=== PATIENT | female | born 1985 | race African-American/Black ===

== ENCOUNTER 2019-03-27 12:30 | Emergency (ER) | payer SELFPAY ==
[~2019-03-27] VITALS: Ht 170.2 cm; Wt 68.0 kg
[2019-03-27] MEDS ORDERED: NKM (12:52)
[2019-03-27 13:28] VITALS: BP 118/66
--- NOTE | 2019-03-27 13:30 | NUR ---
ED Nurse Note:pt. fell yeasterday while rollerblading and hurt right arm, tale bone and head, skin is intact
[2019-03-27] MEDS ORDERED: HYDROcodone/Acetamin 5/325 tab ORAL ONE (13:45)
--- NOTE | 2019-03-27 14:18 | Emergency Room Report ---
History of Present Illness General Chief Complaint: Multiple Trauma/Fall Source: Patient Present Illness HPI 33-year-old female presents to the emergency department complaining of 10 out of 10 severity pain, swelling and tenderness to the right wrist and right forearm since yesterday status post mechanical slip and fall while rollerblading. Patient reports she fell and then to larger size persons fell on top of her. She denies hitting her head she denies loss of consciousness, she denies having any midline neck or back pain. She denies paresthesias or loss of gross motor movements distal to the affected extremity. Patient reports that she has been using warm heat pads and elevation with normal relief of her symptoms. No previous injury to this extremity. Allergies: Coded Allergies: No Known Allergies (Unverified , 03/27/19) Patient History Past Medical History: see triage record Past Surgical History: none Pertinent Family History: none Last Menstrual Period: 03/20/2019 Now: No Immunizations: UTD Reviewed Nursing Documentation: PMH: Agreed; PSxH: Agreed Nursing Documentation-PMH Past Medical History: No Stated History Review of Systems All Other Systems: negative except mentioned in HPI Physical Exam Vital Signs Date Time Temp Pulse Resp B/P (MAP) Pulse Ox O2 Delivery O2 Flow Rate FiO2 03/27/19 12:49 98.4 86 16 118/66 (83) 96 Room Air Sp02 EP Interpretation: reviewed, normal General Appearance: no apparent distress, alert, GCS 15, non-toxic Head: normocephalic, atraumatic Eyes: bilateral eye normal inspection, bilateral eye PERRL ENT: hearing grossly normal, normal voice Neck: full range of motion Respiratory: lungs clear, normal breath sounds, speaking full sentences Cardiovascular #1: regular rate, rhythm, normal capillary refill Cardiovascular #2: 2+ radial (R), 2+ radial (L) Musculoskeletal: back normal, gait/station normal, normal range of motion, tender - TTP to the right wrist and distal forearm, deformity noted, mild bruising medially in the distal forearm. no snuff box ttp, no pain with axial loading of the thumb. Pain with ROM testing. Neurologic: alert, oriented x3, responsive, motor strength/tone normal, sensory intact, normal gait, speech normal, grossly normal Psychiatric: judgement/insight normal Skin: Ecchymosis/Bruising - distal right wrist/ forearm. Lymphatic: no adenopathy Medical Decision Making ALISHA Attestation Dr. Carbajal is my supervising Physician whom patient management has been discussed with. Diagnostic Impression: Primary Impression: Right wrist sprain Qualified Codes: S63.501A - Unspecified sprain of right wrist, initial encounter ER Course 33-year-old female presents to the emergency department complaining of 10 out of 10 severity pain, swelling and tenderness to the right wrist and right forearm since yesterday status post mechanical slip and fall while rollerblading. Patient reports she fell and then to larger size persons fell on top of her. She denies hitting her head she denies loss of consciousness, she denies having any midline neck or back pain. She denies paresthesias or loss of gross motor movements distal to the affected extremity. Patient reports that she has been using warm heat pads and elevation with normal relief of her symptoms. No previous injury to this extremity. Ddx considered but are not limited to Fracture, dislocation, contusion, Sprain/ Strain/Spasm, Vital signs: are WNL, pt. is afebrile H&PE are most consistent with musculoskeletal injury will perform imaging to r/ o fractures/dislocations.-- No snuff box ttp. ORDERS: - X-ray Right wrist 3 views, Right forearm 2 views - negative for fx, Dislocation, or significant soft tissue injury, per preliminary read in ED, and signed by ALISHA Lind, my supervising physician has reviewed, and agrees with my interpretation. ED INTERVENTIONS: - [place] PO 5mg Right thumb spika Splint applied by research tech. Pt. remains neurovascularly intact. - Right arm Sling applied by research tech. Pt. remains neurovascularly intact. DISCHARGE: At this time pt. is stable for d/c to home. Will provide printed patient care instructions, and any necessary prescriptions. Care plan and follow up instructions have been discussed with the patient prior to discharge. Other X-Ray Diagnostic Results Other X-Ray Diagnostic Results #1: X-Ray ordered: right wrist # of Views/Limited Vs Complete: 3 View Indication: Pain EP Interpretation: Yes ALISHA Xray: Interpretation reviewed, by supervising MD, and agrees with findings. Interpretation: no dislocation, no soft tissue swelling, no fractures Impression: No acute disease Electronically Signed by: Therese Lind PA-C Other X-Ray Diagnostic Results #2: X-Ray ordered: right forearm # of Views/Limited Vs Complete: 2 View Indication: Pain EP Interpretation: Yes PA Xray: Interpretation reviewed, by supervising MD, and agrees with findings. Interpretation: no dislocation, no soft tissue swelling, no fractures Impression: No acute disease Electronically Signed by: Therese Lind PA-C Last Vital Signs Date Time Temp Pulse Resp B/P (MAP) Pulse Ox O2 Delivery O2 Flow Rate FiO2 03/27/19 13:28 98.4 86 16 118/66 96 Room Air Status: improved Disposition: HOME, SELF-CARE Condition: Stable Scripts Ibuprofen* (MOTRIN*) 600 Mg Tablet 600 MG ORAL THREE TIMES A DAY, #30 TAB 0 Refills Prov: Therese Lind 03/27/19 Acetaminophen With Codeine (T#3) (TYLENOL #3 TAB*) Y Tab 1 TAB ORAL Q6H PRN for For Pain, #6 TAB Prov: Therese Lind 03/27/19 Departure Forms: Return to Work Return to Work Date: Mar 30, 2019 Work Restrictions: No Heavy Lifting Other Restrictions: limited use of right hand. May return Sooner if Symptoms have resolved. Return to Full Activity: Apr 03, 2019 Patient Instructions: Wrist Fracture, [id number] Additional Instructions: Take medications as directed. Follow up with an [facility] in 3-5 days, even if your symptoms have resolved. If symptoms persist MRI may be required at the discretion of your PCP or Ortho Specialist. --Please review list of primary care clinics, if you do not already have a primary care provider who can give you an Orthopedic Referral. Return sooner to ED if new symptoms occur, or current symptoms become worse. Do not drink alcohol, drive, or operate heavy machinery while taking [place] as this may cause drowsiness. - Please note that this Emergency Department Report was dictated using [employer] car repairman technology software, occasionally this can lead to erroneous entry secondary to interpretation by the dictation equipment. Therese Lind Mar 27, 2019 14:18
[2019-03-27] MEDS ORDERED: Ketorolac 30mg Inj IM ONE (14:45)
[2019-03-27] MEDS ORDERED: IBUPROFEN600 MG ORAL (14:48)
[2019-03-27] MEDS ORDERED: ACETAMINOPHEN-1 EAC1 ORAL (14:48)
--- NOTE | 2019-03-27 15:10 | NUR ---
ER DISCHARGE NOTE:wrist splint and arm sling was placed on right arm Patient is cleared to be discharged per ERMD, pt is aox4, on room air, with stable vital signs. pt was given dc and prescription instructions, pt was able to verbalize understanding, pt is able to ambulate with steady gait. pt took all belongings.
[2019-03-27 15:34] VITALS: BP 118/66
--- NOTE | 2019-03-28 12:29 | Diagnostic Imaging Report ---
Indications: Right forearm pain Technique: Two views of the right forearm Comparison: None Findings: No acute fractures. No dislocations. Joint spaces are preserved Impression: Negative
--- NOTE | 2019-03-29 14:56 | Diagnostic Imaging Report ---
Clinical Indication:Right wrist pain Technique: 3 views of the right wrist Comparison: None Findings: No acute fractures. No dislocations. The joint spaces are preserved. Impression: Negative
== END 2019-03-27 16:20 | disposition home or self-care (01) ==
LOC: EMR 16:19
DX: S63.501A Unspecified sprain of right wrist, initial encounter (principal); W01.0XXA Fall on same level from slipping, tripping and stumbling without subsequent striking against object, initial encounter; Y93.51 Activity, roller skating (inline) and skateboarding; Y92.9 Unspecified place or not applicable
CPT/HCPCS: 29125; 73090; 73110; 96372; 99283; J1885